=== PATIENT | male | born 1955 | race Caucasian/White ===

== ENCOUNTER → 2017-07-17 | Outpatient (CLI) | payer OTHER ==
[~2017-07-17] MED LIST: ADULT LOW DOSE81 MG PO; PROTONIX40 M1 PO
[2017-07-17 07:15] LABS: ABSOLUTE EOSINOPHILS 0.2 thou/uL (0.0-0.7); ABSOLUTE LYMPHOCYTES 1.3 thou/uL (0.8-5.3); ABSOLUTE MONOCYTES 0.5 thou/uL (0.0-1.2); ABSOLUTE NEUTROPHILS 3.4 thou/uL (1.6-8.1); BASOPHILS 0.9 %; EOSINOPHILS 3.5 %; HEMATOCRIT 49.5 % (42.0-52.0); HEMOGLOBIN 16.3 gm/dL (14.0-18.0); LYMPHOCYTES 23.9 %; MCH 29.9 pg (26.0-34.0); MCHC 32.9 g/dL (28.0-37.0); MCV 90.9 fL (80.0-100.0); MONOCYTES 8.8 %; MPV 8.5 fl. (7.2-11.1); NUCLEATED RBCS 0 /100WBC; PLATELET COUNT* 166 thou/uL (150-400); POLYS 62.9 %; RBC 5.45 mil/uL (4.50-6.00); RDW-CV 13.6 % (10.5-14.5); WBC 5.3 thou/uL (4.0-11.0)
[2017-07-17 07:24] LABS: CALCIUM 8.8 mg/dL (8.5-10.1); POTASSIUM 4.4 mmol/L (3.5-5.1)
--- NOTE | 2017-07-17 17:07 | EKG ---
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27 : 1955 Requested By: Jose Redmond Order Number: [id number] Reading MD: Kei Munoz Measurements Intervals [place] Rate: 61 P: 79 NE: 126 QRS: 47 QRSD: 90 T: 68 QT: 389 QTc: 392 Interpretive Statements Sinus rhythm Atrial premature complexes in couplets Borderline low voltage, extremity leads Compared to ECG 09/02/2015 11:02:09 Atrial premature complex(es) now present Electronically Signed On 07-17-2017 17:06:45 CADD MANAGER by Kei Munoz [email or web address] <ELECTRONICALLY SIGNED> By: Kei Munoz MD, [facility] 07/17/17 1706 6 6 Kei Munoz MD, FACC /EPI
== END ==
LOC: M.RAD 06:57
PROVIDERS: Urology
DX: Z01.818 Encounter for other preprocedural examination (principal); N43.40 Spermatocele of epididymis, unspecified

== ENCOUNTER 2018-06-06 16:24 | Emergency (ER) | payer OTHER ==
[~2018-06-06] VITALS: Ht 182.9 cm; Wt 81.2 kg
[2018-06-06 17:14] LABS: ABSOLUTE EOSINOPHILS 0.1 thou/uL (0.0-0.7); ABSOLUTE LYMPHOCYTES 1.3 thou/uL (0.8-5.3); ABSOLUTE MONOCYTES 0.5 thou/uL (0.0-1.2); ABSOLUTE NEUTROPHILS 4.7 thou/uL (1.6-8.1); BASOPHILS 0.7 %; EOSINOPHILS 1.9 %; HEMATOCRIT 44.6 % (42.0-52.0); MCH 29.7 pg (26.0-34.0); MCHC 33.5 g/dL (28.0-37.0); MCV 88.7 fL (80.0-100.0); MPV 8.5 fl. (7.2-11.1); NUCLEATED RBCS 0 /100WBC; PLATELET COUNT* 191 thou/uL (150-400); POLYS 70.4 %; RBC 5.04 mil/uL (4.50-6.00); RDW-CV 12.9 % (10.5-14.5); WBC 6.7 thou/uL (4.0-11.0)
[2018-06-06 17:21] LABS: CALCIUM 8.9 mg/dL (8.5-10.1); POTASSIUM 3.7 mmol/L (3.5-5.1)
[2018-06-06 17:26] LABS: ALBUMIN 3.9 g/dL (3.4-5.0); TOTAL BILIRUBIN 0.9 mg/dL (<0.1-1.0); TOTAL PROTEIN 7.4 g/dL (6.4-8.2)
[2018-06-06 18:26] LABS: URINE BILIRUBIN NEGATIVE (Negative); URINE BLOOD NEGATIVE (Negative); URINE CLARITY CLEAR; URINE COLOR YELLOW; URINE GLUCOSE-RANDOM NEGATIVE (Negative); URINE KETONES TRACE (Negative); URINE LEUKOCYTES-REFLEX NEGATIVE (Negative); URINE NITRITE-REFLEX NEGATIVE (Negative); URINE PROTEIN NEGATIVE (Negative); URINE SPECIFIC GRAVITY 1.015 (1.005-1.030); URINE UROBILINOGEN 0.2 E.U./dl (0.2-1.0)
[2018-06-06] MEDS ORDERED: CYCLOBENZAPRINE5 MG PO (18:48)
[2018-06-06] MEDS ORDERED: ULTRAM 50MG TAB50 MG PO (18:50)
[2018-06-06 19:09] VITALS: BP 125/82
== END 2018-06-06 19:11 | disposition home or self-care (01) ==
LOC: M.ERS 16:24
PROVIDERS: Physician Assistant
DX: R10.9 Unspecified abdominal pain (principal); M62.838 Other muscle spasm; F17.210 Nicotine dependence, cigarettes, uncomplicated; Z88.2 Allergy status to sulfonamides; Z86.19 Personal history of other infectious and parasitic diseases

== ENCOUNTER → 2019-07-10 | Outpatient (CLI) | payer OTHER ==
[~2019-07-10] MED LIST changes: +CYCLOBENZAPRINE5 MG PO; +ULTRAM 50MG TAB50 MG PO
[2019-07-10 14:03] LABS: ABSOLUTE BASOPHILS 0.1 thou/uL (0.0-0.2); ABSOLUTE EOSINOPHILS 0.1 thou/uL (0.0-0.7); ABSOLUTE LYMPHOCYTES 1.2 thou/uL (0.8-5.3); ABSOLUTE MONOCYTES 0.6 thou/uL (0.0-1.2); ABSOLUTE NEUTROPHILS 5.2 thou/uL (1.6-8.1); BASOPHILS 0.9 %; EOSINOPHILS 1.8 %; HEMATOCRIT 45.6 % (42.0-52.0); HEMOGLOBIN 15.4 gm/dL (14.0-18.0); LYMPHOCYTES 16.9 %; MCH 30.2 pg (26.0-34.0); MCHC 33.8 g/dL (28.0-37.0); MCV 89.2 fL (80.0-100.0); MONOCYTES 8.5 %; MPV 8.5 fl. (7.2-11.1); NUCLEATED RBCS 0 /100WBC; PLATELET COUNT* 193 thou/uL (150-400); POLYS 71.9 %; RBC 5.11 mil/uL (4.50-6.00); RDW-CV 13.4 % (10.5-14.5); WBC 7.2 thou/uL (4.0-11.0)
== END ==
LOC: M.ULTRA 13:32
PROVIDERS: Internal Medicine
DX: K80.20 Calculus of gallbladder without cholecystitis without obstruction (principal); R07.89 Other chest pain

== ENCOUNTER → 2019-07-19 | Day surgery (SDC) | payer OTHER ==
[~2019-07-19] MED LIST changes: +NOHOMEMEDICATIONS; +PERCOCET 5-3251 EACH PO
[2019-07-19 08:46] LABS: CREATININE 0.9 mg/dL (0.6-1.3); POTASSIUM 4.5 mmol/L (3.5-5.1)
--- NOTE | 2019-07-21 10:33 | OP ---
[facility] [address] [place] [address] [address] OPERATIVE REPORT Name: ANDREW LAY [id number] Admission: 07/19/19 Attend Phys: Chato Rodarte Discharge: Date of : 55 Report #: [id number] THIS REPORT FOR: //name// cc: Demond Tucker MD, David L. MD ~ THIS REPORT FOR: //name// CC: Demond Rodarte DATE OF SERVICE: 07/19/2019 PREOPERATIVE DIAGNOSIS: Symptomatic cholelithiasis. POSTOPERATIVE DIAGNOSIS: Symptomatic cholelithiasis. PROCEDURE: Laparoscopic cholecystectomy. SURGEON: Chato Rodarte MD ANESTHESIA: General. ESTIMATED BLOOD LOSS: Minimal. SPECIMEN: Gallbladder. DESCRIPTION OF PROCEDURE: After informed consent was obtained, the patient was brought to the operating room and placed supine. SCDs were placed and working, preoperative antibiotics were administered, general anesthesia was induced. The abdomen was prepped and draped in the usual sterile fashion. A 10 mm incision was made below the umbilicus. Fascia was incised and the trocar was placed. Pneumoperitoneum was established. Three right upper quadrant 5 mm ports were placed. Gallbladder was grasped at the fundus and retracted cephalad. Infundibulum was grasped and retracted laterally. I dissected out the cystic duct and cystic artery. I dissected out the cystic plate. Cystic duct and artery were clipped and ligated leaving 2 clips on the remaining duct and one on the remaining artery. Gallbladder was then taken off the liver bed with electrocautery. It was placed into an Endopouch and removed. The fascia was then closed with a ajhcvw-ic-ftueh 0 Vicryl. Skin was closed with 4-0 Monocryl. Incisions were sealed with Dermabond. COMPLICATIONS: [place] [address] OPERATIVE REPORT Name: ANDREW LAY Room: [facility]#: [id number] Admission: 07/19/19 Attend Phys: Chato Rodarte Discharge: Date of : 55 Report #: [id number] DISPOSITION: The patient was taken to recovery in satisfactory condition. <ELECTRONICALLY SIGNED> By: Chato Rodarte MD 07/21/19 1033 1041 1111Chato Rodarte MD /nt
--- NOTE | 2019-07-23 15:08 | PATH ---
[address] [address] PATHOLOGY RPT PROCEDURE Name: ERNESTO GARZA [facility]: [facility]#: [id number] Admission: 07/19/19 Date of : 55 Discharge: Report #: [id number] Path Case #: [id number] [facility] Accession Number: [id number] . 01 Material submitted: . gallbladder - GALLBLADDER . 01 Clinical history: . Cholelithiasis . 02 Diagnosis: Gallbladder: - Chronic cholecystitis and cholelithiasis. . (CHILO:adwoa; 07/23/2019) [facility] 07/23/2019 1317 Local . 02 Electronically signed: . Ayush Anderson MD, Pathologist NPI- [id number] . 01 Gross description: . The specimen is received in formalin, labeled "Ernesto Garza gallbladder". Received is an intact gallbladder measuring 7.1 x 2.6 x 2.6 cm in greatest dimensions displaying a blue-sosa serosal surface. Opening the specimen reveals a velvety, bile-stained mucosa with a gallbladder wall thickness of 0.1 cm. Calculi are present displaying a black and nodular appearance, and no masses or lesions are noted grossly. Health Sciences Manager sections, to include the proximal margin, are submitted in cassette A1. (CAA; 07/22/2019) QAC/QA 07/22/2019 1148 Local . 02 Pathologist provided ICD-10: K80.10 . 02 CPT . 247548 Specimen Comment: A courtesy copy of this report has been sent to [phone] Specimen Comment: [phone] Specimen Comment: Report sent to / DR RUSHING Performed at: [address] [id number] MD Román Pollack MD Phone: [phone] Performed at: [address] [address] PATHOLOGY RPT PROCEDURE Name: ROSANNEERNESTO RAFIQ Room: [facility].#: [id number] Admission: 07/19/19 Date of : 55 Discharge: Report #: [id number] Path Case #: [id number] [address] [place] [id number] MD Ayush Anderson MD Phone: [phone]
--- NOTE | 2019-07-26 14:58 | EKG ---
[place] [address] ELECTROCARDIOGRAM REPORT Name: ANDREW LAY Room: [facility]#: [id number] Admission: 07/19/19 Attend Phys: Chato Manuel Discharge: Date of : 55 Date of Service: 07/19/19804 Report #: [id number] THIS REPORT FOR: //name// [facility] Test Date: 2019-07-19 Test Time: 08:05:58 Pat Name: ANDREW LAY Department: Room: Gender: [employer] Member Other Ranks: : 1955 Requested By: Chato Rodarte Order Number: [id number] Karly MD: Demond Mccracken Measurements Intervals [place] Rate: 58 P: 67 NM: 133 QRS: 57 QRSD: 97 T: 63 QT: 426 QTc: 419 Interpretive Statements Sinus arrhythmia Compared to ECG 07/17/2017 07:37:30 no change Electronically Signed On 07-19-2019 9:45:32 PAID SEARCH ANALYST by Demond Mccracken [email or web address] <ELECTRONICALLY SIGNED> By: Demond Mccracken MD, [facility] 0245 4 4 Demond Mccracken MD, [facility] /EPI
== END | disposition home or self-care (01) ==
LOC: M.SUR 07:47
PROVIDERS: Surgery
DX: K80.10 Calculus of gallbladder with chronic cholecystitis without obstruction (principal); F17.210 Nicotine dependence, cigarettes, uncomplicated; Z86.19 Personal history of other infectious and parasitic diseases; Z98.890 Other specified postprocedural states; Z79.899 Other long term (current) drug therapy; Z88.2 Allergy status to sulfonamides; Z79.891 Long term (current) use of opiate analgesic

== ENCOUNTER 2019-11-25 06:15 | Emergency (ER) | payer OTHER ==
[~2019-11-25] VITALS: Ht 182.9 cm; Wt 69.8 kg
[2019-11-25 06:54] LABS: ABSOLUTE BASOPHILS 0.1 thou/uL (0.0-0.2); ABSOLUTE EOSINOPHILS 0.2 thou/uL (0.0-0.7); ABSOLUTE MONOCYTES 0.5 thou/uL (0.0-1.2); BASOPHILS 1.2 %; EOSINOPHILS 3.8 %; HEMOGLOBIN 17.1 gm/dL (14.0-18.0); LYMPHOCYTES 17.7 %; MCH 29.9 pg (26.0-34.0); MCHC 33.6 g/dL (28.0-37.0); MCV 88.9 fL (80.0-100.0); MONOCYTES 9.1 %; MPV 8.8 fl. (7.2-11.1); NUCLEATED RBCS 0 /100WBC; PLATELET COUNT* 179 thou/uL (150-400); POLYS 68.2 %; RBC 5.74 mil/uL (4.50-6.00); WBC 5.8 thou/uL (4.0-11.0)
[2019-11-25 07:04] LABS: URINE BILIRUBIN NEGATIVE (Negative); URINE BLOOD NEGATIVE (Negative); URINE CLARITY CLEAR; URINE COLOR YELLOW; URINE GLUCOSE-RANDOM NEGATIVE (Negative); URINE KETONES NEGATIVE (Negative); URINE LEUKOCYTES-REFLEX NEGATIVE (Negative); URINE NITRITE-REFLEX NEGATIVE (Negative); URINE PROTEIN NEGATIVE (Negative); URINE SPECIFIC GRAVITY >= 1.030 (1.005-1.030); URINE UROBILINOGEN 0.2 E.U./dl (0.2-1.0)
[2019-11-25 07:05] LABS: CALCIUM 9.2 mg/dL (8.5-10.1); CREATININE 1.1 mg/dL (0.6-1.3); POTASSIUM 4.4 mmol/L (3.5-5.1)
[2019-11-25 07:10] LABS: ALBUMIN 3.9 g/dL (3.4-5.0); TOTAL BILIRUBIN 0.8 mg/dL (<0.1-1.0); TOTAL PROTEIN 7.7 g/dL (6.4-8.2)
[2019-11-25 10:00] VITALS: BP 132/81
--- NOTE | 2019-11-25 15:41 | EKG ---
[place] [address] ELECTROCARDIOGRAM REPORT Name: ROSANNEANDREW CONROY Room: 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: [facility] : 1955 Requested By: Sang Faulkner Order Number: [id number] MD: Kei Munoz Measurements Intervals [place] Rate: 77 P: 77 VT: 171 QRS: 83 QRSD: 92 T: 41 QT: 354 QTc: 401 Interpretive Statements Sinus rhythm Atrial premature complexes Borderline right axis deviation Borderline low voltage, extremity leads Compared to ECG 07/19/2019 08:05:58 Atrial premature complex(es) now present Sinus arrhythmia no longer present Electronically Signed On 11-25-2019 15:41:09 CDT by Kei Munoz [email or web address] <ELECTRONICALLY SIGNED> By: Kei Munoz MD, [facility] 11/25/19 1541 0735 0735 Kei Munoz MD, [facility] /EPI
== END 2019-11-25 10:00 | disposition home or self-care (01) ==
LOC: M.ERS 06:15
PROVIDERS: Personal Emergency Response Attendant
DX: R16.0 Hepatomegaly, not elsewhere classified (principal); R10.84 Generalized abdominal pain; F17.210 Nicotine dependence, cigarettes, uncomplicated; Z88.2 Allergy status to sulfonamides